=== PATIENT | male | born 1945 | race Caucasian/White ===

== ENCOUNTER 2017-12-07 09:48 | Emergency (ER) | payer MEDICARE, OTHER ==
[2017-12-07] MEDS ORDERED: Atropine Sulfate 1 mg/10 ml Syringe ONE (09:56)
[2017-12-07] MEDS ORDERED: EPINEPHrine 1 MG/10 ML Abboject SYRINGE ONE (17:00)
[2017-12-07] MEDS ORDERED: Sodium Bicarb 50 MEQ/50 ML Abboject 8.4% SYRINGE ONE (17:00)
[2017-12-07] MEDS ORDERED: Magnesium 5 GM/10 ML Abboject SYRINGE ONE (17:00)
[2017-12-07] MEDS ORDERED: Calcium Chloride 1 GM/10 ML Abboject SYRINGE ONE (17:00)
== END 2017-12-07 10:15 | disposition expired ==
LOC: ERS 09:48
DX: I46.9 Cardiac arrest, cause unspecified (principal)
CPT/HCPCS: 31500; 36556; 92950; 96374; 96375; J0171; J0461; J3475